=== PATIENT | female | born 1960 | race Caucasian/White ===

== ENCOUNTER → 2023-10-10 10:40 | Outpatient (REF) | payer MEDICARE, BC, SELFPAY | LOC: HWRAD 10:40 | PROVIDERS: ATTENDING PHYSICIAN Family Medicine | DX: R63.4 Abnormal weight loss (principal) | CPT/HCPCS: 71260; 74177; Q9967 ==

== ENCOUNTER → 2024-07-23 07:30 | Outpatient (REF) | payer MEDICARE, BC, SELFPAY | LOC: WDC 07:30 | PROVIDERS: ATTENDING PHYSICIAN Hospitalist | DX: Z12.31 Encounter for screening mammogram for malignant neoplasm of breast (principal) | CPT/HCPCS: 77063; 77067 ==

== ENCOUNTER → 2025-07-22 07:16 | Outpatient (REF) | payer OTHER, SELFPAY ==
[2025-07-22 08:16] LABS: Hematocrit 36.8 % (37.0-47.0); Hemoglobin 12.3 g/dL (12.0-16.0); Mean Corp Hgb Conc. 33.4 g/dL (33.0-37.0); Mean Corpuscular Volume 92.9 fL (81.0-99.0); Nucleated Red Blood Cells % 0 %; Platelet Count 227 10^3/uL (130-400); Red Cell Dist. Width 12.5 % (11.5-14.5)
[2025-07-22 08:48] LABS: Vitamin D, 25-OH*** 55.4 ng/mL (30-80)
[2025-07-22 08:54] LABS: Absolute Neutrophils -Man Diff 2.0 10^3/uL (1.4-6.5)
[2025-07-22 08:55] LABS: Normal RBC Morphology Yes; Platelets Checked Yes; Total Cells Counted 100
[2025-07-22 10:42] LABS: Cortisol, Random 7.3 ug/dl
[2025-07-22 14:26] LABS: Folate 17.0 ng/ml (2.76-20); Vitamin B12 672 pg/ml (239-931)
== END ==
LOC: REG 07:16
PROVIDERS: ATTENDING PHYSICIAN Hospitalist
DX: R79.89 Other specified abnormal findings of blood chemistry (principal); R53.83 Other fatigue; R05.8 Other specified cough
CPT/HCPCS: 36415; 82306; 82533; 82607; 82746; 85025

== ENCOUNTER → 2025-07-23 14:14 | Outpatient (REF) | payer OTHER, SELFPAY | LOC: HWRAD 14:14 | PROVIDERS: ATTENDING PHYSICIAN Hospitalist | DX: R05.8 Other specified cough (principal) | CPT/HCPCS: 71250 ==

== ENCOUNTER → 2025-07-27 10:49 | Outpatient (REF) | payer OTHER, SELFPAY | LOC: WDC 10:49 | PROVIDERS: ATTENDING PHYSICIAN Hospitalist | DX: Z12.31 Encounter for screening mammogram for malignant neoplasm of breast (principal) | CPT/HCPCS: 77063; 77067 ==